=== PATIENT | female | born 1980 | race Caucasian/White ===

== ENCOUNTER 2016-12-09 07:27 | Inpatient (IN) | payer SELFPAY ==
[~2016-12-09] VITALS: Ht 167.6 cm; Wt 79.0 kg
[2016-12-09 07:44] VITALS: BP 142/78; PULSE 74; RESP 16; TEMP 99.6; O2SAT 96
[2016-12-09 08:26] LABS: AUTOMATED NEUTROPHIL # 9.1 TH/MM3 (1.8-7.7); BASOPHIL # 0.1 TH/MM3 (0-0.2); BASOPHIL % 0.5 % (0.0-2.0); EOSINOPHIL % 0.2 % (0.0-4.0); HEMO FLAGS DIFF FINAL; LYMPHOCYTE # 1.7 TH/MM3 (1.0-4.8); MEAN CELL VOLUME 89.2 FL (80.0-100.0); MEAN CORPUSCULAR HEMOGLOBIN 29.9 PG (27.0-34.0); MEAN CORPUSCULAR HGB CONC 33.5 % (32.0-36.0); MONO % 9.7 % (0.0-8.0); NEUT % 75.6 % (16.0-70.0); PLATELET COUNT 280 TH/MM3 (150-450); RED BLOOD COUNT 4.26 MIL/MM3 (4.00-5.30); RED CELL DISTRIBUTION WIDTH 13.3 % (11.6-17.2)
[2016-12-09 08:41] LABS: ALT (GPT) 23 U/L (10-53); ANION GAP 8 MEQ/L (5-15); AST (GOT) 39 U/L (15-37); BICARBONATE 23.2 MEQ/L (21.0-32.0); CHLORIDE 107 MEQ/L (98-107); GLOMERULAR FILTRATION RATE 87 ML/MIN (>89); POTASSIUM 4.4 MEQ/L (3.5-5.1); SODIUM (NA) 138 MEQ/L (136-145)
[2016-12-09 08:43] LABS: ALKALINE PHOSPHATASE 72 U/L (45-117); TOTAL BILIRUBIN ADULT 0.7 MG/DL (0.2-1.0)
[2016-12-09 08:45] LABS: BLOOD UREA NITROGEN 11 MG/DL (7-18)
[2016-12-09 08:53] LABS: ALCOHOL LESS THAN 3 MG/DL (0-5)
--- NOTE | 2016-12-09 09:04 | PD ---
HPI . Cruz Act Chief Complaint: Psychiatric Symptoms Time Seen by Provider: 07:53 Travel History International Travel<30 days: No Contact w/Intl Traveler<30days: No Traveled to known affect area: No History of Present Illness HPI This patient presents as a Cruz Act. She is reportedly visiting here from out of town for her grandmother's . She has been drinking and taking prescription medications in order to deal with the of her grandmother. No cyst or her family. They called the police concern for her safety. A Cruz Act was enacted and she was brought to the hospital. PFSH Past Medical History ?: Unknown Social History Tobacco Use: No Review of Systems ROS Limitations: Altered Mental Status Physical Exam Narrative GENERAL: This patient is awake and alert but her speech is not making sense. SKIN: warm/dry. No rash. HEAD: Normocephalic. Atraumatic. EYES: Pupils equal and round. No scleral icterus. No injection or drainage. ENT: No nasal bleeding or discharge. Mucous membranes pink and moist. NECK: Trachea midline. Full range of motion without pain.. CARDIOVASCULAR: Regular rate and rhythm. RESPIRATORY: No accessory muscle use. Clear to auscultation. Breath sounds equal bilaterally. MUSCULOSKELETAL: No obvious deformities. NEUROLOGICAL: Awake and alert. No obvious cranial nerve deficits. Motor grossly within normal limits. Disoriented speech. She is able to tell me her name but is unable to tell me where she is, what type of place this is, the day or date. She is oriented to person only. PSYCHIATRIC: Unable to evaluate. Data Data Last Documented VS Vital Signs Date Time Temp Pulse Resp B/P (MAP) Pulse Ox O2 Delivery O2 Flow Rate FiO2 12/09/16 07:44 99.6 74 16 142/78 (99) 96 Orders Orders Complete Blood Count With Diff (12/09/16 07:53) Comprehensive Metabolic Panel (12/09/16 07:53) Psych Screen (12/09/16 07:53) Drug Screen, Random Urine (12/09/16 07:53) Alcohol (Ethanol) (12/09/16 07:53) Labs Laboratory Tests Test 12/09/16 08:10 12/09/16 09:38 White Blood Count 12.0 TH/MM3 Red Blood Count 4.26 MIL/MM3 Hemoglobin 12.7 GM/DL Hematocrit 38.0 % Mean Corpuscular Volume 89.2 FL Mean Corpuscular Hemoglobin 29.9 PG Mean Corpuscular Hemoglobin Concent 33.5 % Red Cell Distribution Width 13.3 % Platelet Count 280 TH/MM3 Mean Platelet Volume 8.6 FL Neutrophils (%) (Auto) 75.6 % Lymphocytes (%) (Auto) 14.0 % Monocytes (%) (Auto) 9.7 % Eosinophils (%) (Auto) 0.2 % Basophils (%) (Auto) 0.5 % Neutrophils # (Auto) 9.1 TH/MM3 Lymphocytes # (Auto) 1.7 TH/MM3 Monocytes # (Auto) 1.2 TH/MM3 Eosinophils # (Auto) 0.0 TH/MM3 Basophils # (Auto) 0.1 TH/MM3 CBC Comment DIFF FINAL Differential Comment Blood Urea Nitrogen 11 MG/DL Creatinine 0.75 MG/DL Random Glucose 97 MG/DL Total Protein 7.8 GM/DL Albumin 4.2 GM/DL Calcium Level 9.7 MG/DL Alkaline Phosphatase 72 U/L Aspartate Amino Transf (AST/SGOT) 39 U/L Alanine Aminotransferase (ALT/SGPT) 23 U/L Total Bilirubin 0.7 MG/DL Sodium Level 138 MEQ/L Potassium Level 4.4 MEQ/L Chloride Level 107 MEQ/L Carbon Dioxide Level 23.2 MEQ/L Anion Gap 8 MEQ/L Estimat Glomerular Filtration Rate 87 ML/MIN Ethyl Alcohol Level LESS THAN 3 MG/DL Urine Opiates Screen NEG Urine Barbiturates Screen NEG Urine Amphetamines Screen NEG Urine Benzodiazepines Screen NEG Urine Cocaine Screen NEG Urine Cannabinoids Screen NEG MDM Medical Decision Making Medical Screen Exam Complete: Yes Emergency Medical Condition: Yes Differential Diagnosis Differential diagnosis of altered mental status includes but is not limited to infection, electrolyte abnormality, neurological event, intoxication Narrative Course This patient presents under the Cruz Act for alcohol and substance abuse. She is being medically cleared. CBC & BMP Diagram 12/09/16 08:10 Total Protein 7.8, Albumin 4.2, Calcium Level 9.7, Alkaline Phosphatase 72, Aspartate Amino Transf (AST/SGOT) 39 H, Alanine Aminotransferase (ALT/SGPT) 23, Total Bilirubin 0.7 Drug screen and alcohol level are negative. Diagnosis Primary Impression: Encounter for medical screening examination Condition: Stable Mahi Jiménez MD Dec 09, 2016 09:04
[2016-12-09] MEDS ORDERED: WELLTAB39 PO (11:54)
[2016-12-09] MEDS ORDERED: MELA5TAB15 PO (11:54)
[2016-12-09] MEDS ORDERED: ZOLO25TA PO (11:54)
[2016-12-09] MEDS ORDERED: [UNRECOGNIZED DRUG - REMARK] (11:55)
[2016-12-09] MEDS ORDERED: SERO100T PO (11:55)
[2016-12-09 12:00] VITALS: BP 157/78; PULSE 70; RESP 20; TEMP 97.9; O2SAT 100
[2016-12-09] MEDS ORDERED: ACETAMINOPHEN 325 MG TAB PO PRN (12:00)
[2016-12-09] MEDS ORDERED: LORazepam 2 MG/ML VIAL IM PRN ×2 (12:00)
[2016-12-09] MEDS ORDERED: ALUMINUM/MAGNESIUM/SIMETH 30 ML CUP PO PRN (12:00)
[2016-12-09] MEDS ORDERED: LORazepam 0.5 MG TAB PO PRN (12:00)
[2016-12-09] MEDS ORDERED: MAGNESIUM HYDROXIDE SUSP 30 ML CUP PO PRN (12:00)
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
[2016-12-09] MEDS ORDERED: LORazepam 2 MG/ML VIAL IV PUSH STA (12:23)
[2016-12-09] MEDS ORDERED: HALOPERIDOL LACTATE 5 MG/ML AMP IM ONE (12:30)
[2016-12-09] MEDS ORDERED: LORazepam 2 MG/ML VIAL IM STA (13:20)
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
[2016-12-09] MEDS: NICOTINE 21 MG/24 HR PATCH T-DERMAL SCH (15:00)
[2016-12-09 16:02] VITALS: BP 117/77; PULSE 94; RESP 18; TEMP 97.9; O2SAT 98
[2016-12-09] MEDS: REMOVE OLD NICODERM (NICOTINE) PATCH T-DERMAL SCH (21:00)
[2016-12-09] MEDS: LORazepam 1 MG TAB PO PRN ×2 (21:00→21:30)
[2016-12-10] MEDS: QUEtiapine FUMARATE 25 MG TAB PO SCH ×2 (08:57→13:19)
[2016-12-10] MEDS: NICOTINE 21 MG/24 HR PATCH T-DERMAL SCH (08:58)
[2016-12-10 09:52] LABS: ANION GAP 6 MEQ/L (5-15); BICARBONATE 22.9 MEQ/L (21.0-32.0); BLOOD UREA NITROGEN 13 MG/DL (7-18); CHLORIDE 107 MEQ/L (98-107); GLOMERULAR FILTRATION RATE 117 ML/MIN (>89); POTASSIUM 4.1 MEQ/L (3.5-5.1); SODIUM (NA) 136 MEQ/L (136-145)
[2016-12-10 09:55] LABS: HDL CHOLESTEROL 98.6 MG/DL (40.0-60.0); LDL CHOLESTEROL 46 MG/DL (0-99)
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
[2016-12-10 17:45] VITALS: BP 113/65; PULSE 89; RESP 18; TEMP 97.1; O2SAT 100
[2016-12-10 18:00] LABS: HEMOGLOBIN A1a 0.9 %; HEMOGLOBIN A1b 0.9 %; HEMOGLOBIN Ao 86.7 %; HEMOGLOBIN F 0.9 %; HEMOGLOBIN LA1C 1.5 %; HEMOGLOBIN P3 3.2 %
[2016-12-10] MEDS: QUEtiapine FUMARATE 100 MG TAB PO SCH (21:00)
[2016-12-10] MEDS: REMOVE OLD NICODERM (NICOTINE) PATCH T-DERMAL SCH (21:00)
[2016-12-10] MEDS: LORazepam 1 MG TAB PO PRN (21:00)
[2016-12-11] MEDS: NICOTINE 21 MG/24 HR PATCH T-DERMAL SCH (09:00)
[2016-12-11] MEDS: QUEtiapine FUMARATE 100 MG TAB PO SCH (09:00)
[2016-12-11] MEDS ORDERED: ALPR.5 PO (11:13)
[2016-12-11] MEDS ORDERED: SERO100T PO (11:13)
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
[2016-12-11] MEDS: LORazepam 1 MG TAB PO PRN (17:09)
[2016-12-11 18:56] VITALS: BP 112/70; PULSE 96; RESP 18; TEMP 98; O2SAT 100
== END 2016-12-11 20:05 | disposition home or self-care (01) | DRG 885 ==
LOC: NEPC 07:27 → NEDA 14:06 → H270 15:45
PROVIDERS: ADMIT Psychiatry & Neurology Psychiatry; ATTEND Psychiatry & Neurology Psychiatry
DX: F28 Other psychotic disorder not due to a substance or known physiological condition (principal); F31.9 Bipolar disorder, unspecified; Z62.810 Personal history of physical and sexual abuse in childhood; Z62.811 Personal history of psychological abuse in childhood; Z91.5 Personal history of self-harm; Z81.8 Family history of other mental and behavioral disorders; Z80.0 Family history of malignant neoplasm of digestive organs; Z80.8 Family history of malignant neoplasm of other organs or systems
CPT/HCPCS: 80048; 80053; 80061; 80307; 82140; 82607; 83036; 84443; 85025; 85048; 86592; 96372; J1630; J2060